=== PATIENT | male | born 1975 | race Caucasian/White ===

== ENCOUNTER 2022-02-26 16:37 | Emergency (ER) | payer OTHER ==
[2022-02-26] MEDS ORDERED: MOBIC7.5 MG PO (20:44)
== END 2022-02-26 20:47 | disposition home or self-care (01) ==
LOC: ER1 16:37
DX: R07.89 Other chest pain (principal); I10 Essential (primary) hypertension; K21.9 Gastro-esophageal reflux disease without esophagitis
CPT/HCPCS: 71045; 99284